=== PATIENT | female | born 1960 | race Caucasian/White ===

== ENCOUNTER 2019-10-06 09:02 | Outpatient (CLI) | payer OTHER, SELFPAY ==
[2019-10-06 09:36] LABS: Alanine Aminotransferase 13 U/L (4-35); Albumin Level 4.2 g/dL (3.5-5.1); Alkaline Phosphatase 122 U/L (38-126); Aspartate Amino Transferase 23 U/L (14-36); Bilirubin,Total 0.5 mg/dL (0.2-1.3); Blood Urea Nitrogen 18 mg/dL (7-17); Calcium 9.5 mg/dL (8.4-10.2); Carbon Dioxide 29 mmol/L (22-30); Chloride 100 mmol/L (98-107); Cholesterol 313 mg/dL (0-200); Estimated Glomerular Filt Rate > 60; Glucose 307 mg/dL (65-105); HDL Direct 54 mg/dL; Potassium 4.8 mmol/L (3.4-5.0); Sodium 136 mmol/L (137-145); Triglycerides 418 mg/dL (<150)
[2019-10-06 09:47] LABS: LDL Cholesterol Direct 198 mg/dL
[2019-10-06 10:48] LABS: Hemoglobin A1C 11.9 % (<5.7)
== END 2019-10-06 09:03 | disposition home or self-care (01) ==
LOC: ANHLAB 09:04
PROVIDERS: PCP Internal Medicine; Visit Provider Nurse Practitioner
DX: E78.5 Hyperlipidemia, unspecified (principal); E11.9 Type 2 diabetes mellitus without complications
CPT/HCPCS: 36415; 80053; 80061; 83036

== ENCOUNTER 2019-10-09 21:12 | Emergency (ER) | payer OTHER, SELFPAY ==
--- NOTE | ~2019-10-09 | XR_ITS ---
EXAMINATION: XR shoulder RT min 2V DATE: 10/09/2019 21:28 INDICATION: Right shoulder injury and pain. TECHNIQUE: 4 views of right shoulder were obtained. COMPARISON: None. FINDINGS: Bone alignment is normal. No fracture. There is moderate osteoarthritis of glenohumeral ambrosio nt. There are loose bodies in the glenohumeral joint. There is severe acromioclavicular joint osteoar thritis. There is mild calcific tendinitis of the rotator cuff. IMPRESSION: 1. Polyarticular osteoarthritis. 2. Loose bodies in right glenohumeral joint. 3. Mild calcific tendinitis of right rotator cuff. Reviewed, dictated and finalized at location A.
[2019-10-09 21:14] VITALS: BP 133/91; PULSE 83; RESP 20; TEMP 36.5; O2SAT 99
--- NOTE | 2019-10-09 21:15 | PC.NURSE ---
pt to xray
--- NOTE | 2019-10-09 22:41 | ED.FALL ---
HPI - Fall General Chief Complaint: Fall Stated Complaint: Fall, Shoulder pain Time Seen by Provider: 10/09/19 22:34 Source: patient and family History of Present Illness HPI Narrative: Patient tripped and fell while walking. Denies any head injury or neck injury. Complaining of right shoulder pain. Some scrapes on the right lower extremity. Patient is able to stand up and walk without any limitation. Patient does not take blood thinners. Related Data Home Medications Medication Instructions Recorded Confirmed chlorpheniramine maleate 4 mg 4 mg PO Q6H PRN 07/07/19 tablet cyclobenzaprine 10 mg tablet 10 mg PO TID 10/06/19 nitrofurantoin macrocrystal 100 mg 100 mg PO Q12H 10/06/19 capsule omeprazole 20 mg capsule,delayed 40 mg PO BID cap 10/06/19 release Allergies Allergy/AdvReac Type Severity Reaction Status Date / Time Cephalosporins Allergy Mild Unknown Verified 10/09/19 21:18 cisapride Allergy Mild Unknown Verified 10/09/19 21:18 cephalexin Allergy Unknown Unknown Verified 10/09/19 21:18 Sulfa (Sulfonamide Allergy Unknown Unknown Verified 10/09/19 21:18 Antibiotics) Review of Systems Review of Systems: Narrative: CONSTITUTIONAL: Denies fever, chills, or sweats. EYES: Denies visual changes, redness, or discharge. ENT: Denies rhinorrhea, congestion, sore throat, or otalgia. CARDIOVASCULAR: Denies chest pain, palpitations, or edema. RESPIRATORY: Denies cough or dyspnea. GASTROINTESTINAL: Denies abdominal pain, nausea, vomiting, or diarrhea. GENITOURINARY: Denies dysuria or hematuria. SKIN: Denies rash or itching. MUSCULOSKELETAL: Denies back pain, joint pain, or myalgia. NEUROLOGIC: Denies headache, numbness, or weakness. PSYCHIATRIC: Denies anxiety or depression. [facility] Past Medical History Medical History GERD (gastroesophageal reflux disease) Hiatal hernia Hypertension Irritable bowel disease Surgical History Surgical History History of appendectomy History of section History of tonsillectomy Family History Family History Father Diabetes mellitus Sibling Patient's brother is in good health Mother Carcinoma of colon Social History Social History Smoking status: Never smoker Alcohol intake: never Gender identity (if verbalized by the patient): Female Exam Narrative: Exam Narrative: General appearance: Well-developed, well-nourished Skin: Normal color Head: Normocephalic, nontraumatic Eyes: Clear conjunctiva ENT: Oropharynx normal, ears normal, nose normal Neck: Supple, nontender Chest and respiratory: Airway patent, no respiratory distress, no accessory muscle use Heart: Regular rate/rhythm Abdomen: Soft, nontender, no organomegaly, quiet bowel sounds Vascular: Normal peripheral pulses, normal capillary refill. 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
[2019-10-09 23:03] VITALS: BP 143/82; PULSE 78; RESP 18; O2SAT 99
== END 2019-10-09 23:04 | disposition home or self-care (01) ==
PROVIDERS: Emergency Provider Emergency Medicine; PCP Internal Medicine
DX: S40.011A Contusion of right shoulder, initial encounter (principal); K21.9 Gastro-esophageal reflux disease without esophagitis; I10 Essential (primary) hypertension; K58.9 Irritable bowel syndrome, unspecified; W01.0XXA Fall on same level from slipping, tripping and stumbling without subsequent striking against object, initial encounter
CPT/HCPCS: 73030; 99283

== ENCOUNTER 2020-06-18 11:49 | Emergency (ER) | payer OTHER, SELFPAY ==
[2020-06-18] VITALS (7 sets, daily range): BP systolic 116–131; BP diastolic 66–85; PULSE 81–91; RESP 18; TEMP 36.2; O2SAT 96–98
--- NOTE | ~2020-06-18 | CT_ITS ---
EXAMINATION: CT abdomen pelvis w con INDICATION: Right flank pain TECHNIQUE: Computed tomographic images of the abdomen and pelvis were obtained after the administrati on of 100 cc of Omnipaque 350 intravenous contrast. The dose-length product (DLP) was 763.78 mGy-cm. Automated exposure control and iterative reconstruction technique were employed. COMPARISON: None available FINDINGS: Minimal dependent atelectasis is present in the lung bases. The heart size is normal. There is a moderate-sized sliding hiatal hernia. Punctate calcifications in an otherwise normal spleen lik junito represent healed granulomatous disease. The liver, pancreas, gallbladder, and adrenal glands are normal. There is a 5.1 cm cyst of the left kidney. The right kidney is unremarkable. No stones are id entified in the kidneys, ureters, or bladder. There is no hydronephrosis or hydroureter. There is albertina cified atherosclerosis of the aorta and many of the other arteries. No pathologically enlarged abdomi nal or pelvic lymph nodes are identified. There is no free intraperitoneal gas or evidence of bowel o bstruction. There is asymmetric sclerosis of the right sacroiliac joint compared to the left which ca n sometimes be seen in the setting of Hermila's syndrome or psoriatic arthritis. There is mild lumbar spondylosis. IMPRESSION: 1. No CT correlate for the patient's symptoms. Reviewed, dictated and finalized at location A.
[2020-06-18 12:38] LABS: Basophils Percent Auto 0.5 % (0.2-1.2); Eosinophils Absolute Auto 0.2 K/mm3 (0-0.3); Eosinophils Percent Auto 2.4 % (0-4.4); Hematocrit 46.2 % (37.0-47.0); Hemoglobin 15.2 g/dL (12.0-15.0); Immature Granulocyte Absolute 0.02 K/mm3 (0.00-0.031); Immature Granulocyte Percent A 0.3 % (0-0.5); Lymphocytes Absolute Auto 2.87 K/mm3 (0.9-3.2); Mean Corpuscular HGB Conc 32.9 g/dl (32-36); Mean Corpuscular Hemoglobin 29.7 pg (26-34); Mean Corpuscular Volume 90.2 fl (80-100); Mean Platelet Volume 10.7 fl (7.4-10.4); Monocytes Absolute Auto 0.5 K/mm3 (0.1-0.6); Monocytes Percent Auto 6.5 % (2.6-8.5); Neutrophils Percent Auto 52.3 % (45.5-73.1); Platelet Count Result 236 k/mm3 (150-375); Red Blood Count 5.12 M/mm3 (4.2-5.4); Red Cell Distribution Width 12.5 % (11.5-14.5); White Blood Count 7.6 K/mm3 (4.5-10.0)
[2020-06-18 12:49] LABS: Anion Gap 7 mmol/L (8-16); Blood Urea Nitrogen 14 mg/dL (7-17); Calcium 9.3 mg/dL (8.4-10.2); Carbon Dioxide 28 mmol/L (22-30); Chloride 101 mmol/L (98-107); Estimated CRCL calculation 83 ml/min; Estimated Glomerular Filt Rate > 60; Glucose 329 mg/dL (65-105); Potassium 4.6 mmol/L (3.4-5.0); Sodium 136 mmol/L (137-145)
[2020-06-18] MEDS: ONDANSETRON INJ 4 MG/2 ML VIAL IV PUSH (12:50)
[2020-06-18] MEDS: SODIUM CHLORIDE 0.9% IV 1,000 ML 999 ML IV CONT (12:56)
[2020-06-18 13:03] LABS: Add Urine Microscopic? YES; Appearance Urine Cloudy (Clear); Bacteria Urine Trace /hpf; Bilirubin Urine Negative (Negative); Blood Urine Negative (Negative); Color Urine Yellow (Yellow); Glucose Urine UA 3+ mg/dL (Negative); Ketones Urine Negative (Negative); Leukocyte Esterase Ur 2+ LEU/UL (Negative); Mucus Urine Rare /lpf; Nitrate Urine Negative (Negative); Protein Urine 1+ mg/dL (Negative); Specific Grav Ur 1.028 (1.001-1.035); Squamous Epithelial Cell Urine Few /hpf (Few); Urobilinogen Urine Negative mg/dL (<2.0); WBC Urine 51-75 /hpf
--- NOTE | 2020-06-18 13:37 | ED.ABDPAIN ---
HPI - Abdominal Pain General Chief Complaint: Abdominal Pain Stated Complaint: right flank pain Time Seen by Provider: 06/18/20 12:31 Source: patient, family and RN notes reviewed Mode of arrival: ambulatory Limitations: no limitations History of Present Illness HPI narrative: Patient 60 years old white female presents with right abdominal sharp pain worse with movement, better at rest started 7 to 10 days ago. Patient denies any fever, chills, nausea, vomiting, radiation of pain, urinary symptoms, chest pain or back pain. 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 History of section and appendectomy. Currently patient is asymptomatic. Related Data Home Medications Medication Instructions Recorded Confirmed chlorpheniramine maleate 4 mg 4 mg PO Q6H PRN 07/07/19 03/21/20 tablet omeprazole 20 mg capsule,delayed 40 mg PO BID cap 10/06/19 03/21/20 release lidocaine 4 % topical patch 1 patch TOPICAL DAILY PRN 03/21/20 03/21/20 Allergies Allergy/AdvReac Type Severity Reaction Status Date / Time Cephalosporins Allergy Mild rash Verified 06/18/20 11:57 cisapride Allergy Mild rash Verified 06/18/20 11:57 cephalexin Allergy Unknown rash Verified 06/18/20 11:57 Sulfa (Sulfonamide Allergy Unknown Rash Verified 06/18/20 11:57 Antibiotics) Review of Systems Review of Systems: Narrative: CONSTITUTIONAL: Denies fever, chills, or sweats. EYES: Denies visual changes, redness, or discharge. ENT: Denies rhinorrhea, congestion, sore throat, or otalgia. CARDIOVASCULAR: Denies chest pain, palpitations, or edema. RESPIRATORY: Denies cough or dyspnea. GASTROINTESTINAL: Denies abdominal pain, nausea, vomiting, or diarrhea. GENITOURINARY: Denies dysuria or hematuria. SKIN: Denies rash or itching. MUSCULOSKELETAL: Denies back pain, joint pain, or myalgia. NEUROLOGIC: Denies headache, numbness, or weakness. PSYCHIATRIC: Denies anxiety or depression. [facility] Past Medical History Medical History Cyst of Skin GERD (gastroesophageal reflux disease) Hiatal hernia Hypertension Irritable bowel disease MRSA (methicillin resistant Staphylococcus aureus) Surgical History Surgical History History of appendectomy History of section History of tonsillectomy Family History Family History Father Diabetes mellitus Sibling Patient's brother is in good health Mother Carcinoma of colon Social History Social History Smoking status: Never smoker Alcohol intake: never Gender identity (if verbalized by the patient): Female Exam Narrative: Exam Narrative: General appearance: Well-developed, well-nourished Skin: Normal color Head: Normocephalic, nontraumatic Eyes: Clear conjunctiva ENT: Oropharynx normal, ears normal, nose normal Neck: Supple, nontender Chest and respiratory: Airway patent, no respiratory distress, no accessory muscle use Heart: Regular rate/rhythm Abdomen: Soft, nontender, no organomegaly, quiet bowel sounds Vascular: Normal peripheral pulses, normal capillary refill. 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
== END 2020-06-18 15:00 | disposition home or self-care (01) ==
PROVIDERS: Emergency Medicine; Emergency Provider Emergency Medicine; PCP Internal Medicine
DX: N39.0 Urinary tract infection, site not specified (principal); R73.9 Hyperglycemia, unspecified; R10.11 Right upper quadrant pain; K21.9 Gastro-esophageal reflux disease without esophagitis; I10 Essential (primary) hypertension; K58.9 Irritable bowel syndrome, unspecified; Z86.14 Personal history of Methicillin resistant Staphylococcus aureus infection
CPT/HCPCS: 36415; 74177; 80048; 81001; 85025; 87086; 96361; 96374; 99284; J2405; J7030; Q9967

== ENCOUNTER 2020-06-29 11:26 | Outpatient (CLI) | payer OTHER, SELFPAY ==
--- NOTE | ~2020-06-29 | XR_ITS ---
EXAMINATION: XR thoracic spine 2V, XR lumbar spine 2-3V DATE: 06/29/2020 12:01 INDICATION: Lumbago with sciatica. TECHNIQUE: 1. AP, lateral and lateral swimmers views of the thoracic spine were obtained. 2. AP and lateral views of the lumbar spine and cone-down lateral view of the lumbosacral junction we re obtained. COMPARISON: CT abdomen and pelvis dated 06/18/2020 FINDINGS: Thoracic spine: 6 degrees lower thoracic levocurvature. Mild upper thoracic kyphosis. Vertebral body heights are norm al. Multilevel mild disc height loss throughout the mid to lower thoracic spine. There are several pr ominent endplate osteophytes in the lower thoracic spine and in the lower cervical spine consistent w ith diffuse idiopathic skeletal hyperostosis (DISH). Visualized portions of the lungs are clear with no pleural effusion or pneumothorax. Cardiomediastinal silhouette is normal. A few splenic calcificat ions along with calcified left hilar lymph nodes consistent with old granulomatous disease. Small hia wliy hernia. Lumbar spine: L5 is partially sacralized on the right. 2-3 mm retrolisthesis L2 on L3 and L3 on L4. 3-4 mm anteroli sthesis L4 on L5. Severe disc height loss at L5-S1. Vertebral body heights are normal. Moderate disc height loss at L4-L5. Severe bilateral facet osteoarthritis at L4-L5 and L5-S1. Mild to moderate face t osteoarthritis in the more cephalad lumbar spine. Moderate right sided and mild left-sided sacroili ac osteoarthritis. Mild bilateral hip osteoarthritis. A few phleboliths in the pelvis. IMPRESSION: Severe lower lumbar spondylosis with mild spondylosis in the more cephalad lumbar and thoracic spine. Reviewed, dictated and finalized at location B. IMPRESSION: Severe lower lumbar spondylosis with mild spondylosis in the more cephalad lumb ar and thoracic spine.
== END 2020-06-29 11:27 | disposition home or self-care (01) ==
LOC: ANHIMG 11:36
PROVIDERS: PCP Internal Medicine; Visit Provider Nurse Practitioner
DX: G89.29 Other chronic pain (principal); M54.40 Lumbago with sciatica, unspecified side; M47.816 Spondylosis without myelopathy or radiculopathy, lumbar region; M47.814 Spondylosis without myelopathy or radiculopathy, thoracic region
CPT/HCPCS: 72070; 72100

== ENCOUNTER 2020-07-15 08:13 | Outpatient (CLI) | payer OTHER, SELFPAY ==
--- NOTE | ~2020-07-15 | MR_ITS ---
EXAMINATION: MR thoracic spine wo con DATE: 07/15/2020 09:29 INDICATION: Thoracic back pain. TECHNIQUE: Magnetic resonance imaging (MRI) of the thoracic spine was performed without intravenous c ontrast. Sagittal localizer T1-weighted FSE of the cervical spine was obtained. Thoracic spine sequen faheem included sagittal T2-weighted FSE, sagittal T1-weighted FSE, sagittal T2-weighted FS FSE, and axi al T2-weighted FSE. COMPARISON: Thoracic spine radiographs 06/29/2020 FINDINGS: There is 4 degrees dextrocurvature of thoracic spine. Vertebral body heights are normal. Th ere is mildly decreased disc height at T5-T6, T6-T7, and T7-T8. At T11-T12, there is a central protru karine. No significant central canal stenosis. There is multilevel facet joint osteoarthritis, severe a t many levels. On the right, there is mild neural foraminal stenosis from T1-T2 through T9-T10 and at T11-T12. On the left, there is mild neural foraminal stenosis from T1-T2 through T4-T5, moderate beck ral foraminal stenosis from T6-T7 through T8-T9, and mild neural foraminal stenosis at T10-T11 and T1 2-L1. The spinal cord signal intensity is normal. The conus medullaris is at L1. There is a moderate- sized sliding hiatal hernia. IMPRESSION: 1. Moderate thoracic spondylosis. 2. Moderate-sized sliding hiatal hernia. Reviewed, dictated and finalized at location A.
== END 2020-07-15 08:14 ==
PROVIDERS: PCP Internal Medicine; Visit Provider Nurse Practitioner Family
DX: M54.6 Pain in thoracic spine (principal); M54.5 Low back pain; M47.814 Spondylosis without myelopathy or radiculopathy, thoracic region; K44.9 Diaphragmatic hernia without obstruction or gangrene
CPT/HCPCS: 72146

== ENCOUNTER 2020-07-25 12:05 | Outpatient (CLI) | payer OTHER, SELFPAY ==
--- NOTE | ~2020-07-25 | MR_ITS ---
EXAMINATION: MR lumbar spine wo con EXAM DATE: 07/25/2020 12:58 INDICATION: Low back pain, occasional leg pain. TECHNIQUE: Multi-sequential, multiplanar MR images of the lumbar spine were obtained without contrast . Sagittal T1, T2, T2 fat saturation images. Axial T2 weighted images. Correlation is made to lumba r x-ray 06/29/2020. FINDINGS: Partially sacralized L5 segment. There is 3 mm retrolisthesis L2 on L3 and L3 on L4. There is 2 mm anterolisthesis L4 on L5. Mild disc disease T10 through L5. There are no suspicious marrow si gnal abnormalities. The conus medullaris terminates at the T12-L1 level and has normal signal intensi ty and morphology. Left renal cyst. Level by level evaluation: T12-L1: There is a minimal diffuse disc bulge. Facet arthropathy: Mild to moderate left, mild right. Neural foraminal stenosis: Mild left. Central canal stenosis: No stenosis. L1-L2: There is a minimal diffuse disc bulge. Facet arthropathy: Mild to moderate left, mild right. Neural foraminal stenosis: No stenosis. Central canal stenosis: No stenosis. L2-L3: There is a mild diffuse disc bulge. Facet arthropathy: Moderate. Neural foraminal stenosis: Mild bilateral. Central canal stenosis: Mild. L3-L4: There is a mild to moderate diffuse disc bulge. Facet arthropathy: Moderate to severe bilateral. Neural foraminal stenosis: Moderate left, mild to moderate right. Central canal stenosis: Moderate. L4-L5: There is a mild diffuse disc bulge. Facet arthropathy: Severe, but partially fused. Neural foraminal stenosis: Mild bilateral. Central canal stenosis: Moderate. L5-S1: There is a minimal diffuse disc bulge. Facet arthropathy: Moderate left to severe left, mild right. Neural foraminal stenosis: Moderate left. Central canal stenosis: No stenosis. IMPRESSION: 1. Lumbar spondylosis as above, with moderate central canal stenosis L3-4 and L4-5. 2. Advanced mid lumbar facet arthropathy. Reviewed, dictated and finalized at location B.
== END 2020-07-25 12:06 ==
PROVIDERS: PCP Internal Medicine; Visit Provider Nurse Practitioner Family
DX: M47.815 Spondylosis without myelopathy or radiculopathy, thoracolumbar region (principal); M48.05 Spinal stenosis, thoracolumbar region; M47.817 Spondylosis without myelopathy or radiculopathy, lumbosacral region; M48.07 Spinal stenosis, lumbosacral region
CPT/HCPCS: 72148

== ENCOUNTER 2020-09-23 10:08 | Outpatient (CLI) | payer OTHER, SELFPAY ==
[2020-09-23 10:56] LABS: Hemoglobin A1C 12.7 % (<5.7)
[2020-09-23 10:59] LABS: Alanine Aminotransferase 18 U/L (4-35); Alkaline Phosphatase 80 U/L (38-126); Anion Gap 8 mmol/L (8-16); Aspartate Amino Transferase 26 U/L (14-36); Bilirubin,Total 0.5 mg/dL (0.2-1.3); Blood Urea Nitrogen 18 mg/dL (7-17); Calcium 9.5 mg/dL (8.4-10.2); Carbon Dioxide 28 mmol/L (22-30); Chloride 103 mmol/L (98-107); Cholesterol 150 mg/dL (0-200); Estimated Glomerular Filt Rate > 60; Glucose 249 mg/dL (65-105); HDL Direct 59 mg/dL; Potassium 4.4 mmol/L (3.4-5.0); Sodium 139 mmol/L (137-145); Triglycerides 225 mg/dL (<150)
[2020-09-23 11:10] LABS: LDL Cholesterol Direct 52 mg/dL
== END 2020-09-23 10:09 | disposition home or self-care (01) ==
PROVIDERS: PCP Internal Medicine; Visit Provider Internal Medicine
DX: E78.5 Hyperlipidemia, unspecified (principal); E11.9 Type 2 diabetes mellitus without complications; I10 Essential (primary) hypertension
CPT/HCPCS: 36415; 80053; 80061; 83036

== ENCOUNTER 2021-01-19 08:31 | Outpatient (CLI) | payer SELFPAY ==
[2021-01-19 10:58] LABS: Hemoglobin A1C 7.9 % (<5.7)
== END 2021-01-19 08:32 | disposition home or self-care (01) ==
LOC: ANHLAB 08:32
PROVIDERS: PCP Internal Medicine; Visit Provider Internal Medicine
DX: E11.9 Type 2 diabetes mellitus without complications (principal)
CPT/HCPCS: 36415; 83036

== ENCOUNTER 2022-06-14 10:05 | Outpatient (CLI) | payer OTHER, SELFPAY ==
[2022-06-14 11:28] LABS: Creatinine Urine 24.5 mg/dL
[2022-06-14 11:33] LABS: MALB Creatinine Ratio 26.1 mg/g (0-30); Microalbumin Urine Random 6.4 mg/L (0-16.7)
[2022-06-14 11:39] LABS: Alanine Aminotransferase 21 U/L (6-35); Albumin Level 4.3 g/dL (3.5-5.1); Alkaline Phosphatase 104 U/L (38-126); Anion Gap 8 mmol/L (8-16); Aspartate Amino Transferase 28 U/L (14-36); Bilirubin,Total 0.7 mg/dL (0.2-1.3); Blood Urea Nitrogen 18 mg/dL (7-17); Calcium 9.2 mg/dL (8.4-10.2); Carbon Dioxide 27 mmol/L (22-30); Chloride 102 mmol/L (98-107); Cholesterol 303 mg/dL (0-200); Estimated Glomerular Filt Rate > 60; Glucose 284 mg/dL (65-110); HDL Direct 45 mg/dL; Potassium 4.3 mmol/L (3.4-5.0); Sodium 137 mmol/L (137-145); Triglycerides 370 mg/dL (<150)
[2022-06-14 11:49] LABS: LDL Cholesterol Direct 171 mg/dL
== END 2022-06-14 10:06 | disposition home or self-care (01) ==
LOC: ANHLAB 10:06
PROVIDERS: PCP Internal Medicine; Visit Provider Nurse Practitioner Family
DX: E11.9 Type 2 diabetes mellitus without complications (principal); E78.5 Hyperlipidemia, unspecified; I10 Essential (primary) hypertension
CPT/HCPCS: 36415; 80053; 80061; 82043; 83036

== ENCOUNTER 2022-07-30 10:30 | Outpatient (CLI) | payer OTHER, SELFPAY ==
[2022-07-30 11:05] LABS: Appearance Urine Clear (Clear); Bacteria Urine None Seen /hpf; Bilirubin Urine Negative (Negative); Blood Urine Negative (Negative); Color Urine Yellow (Yellow); Glucose Urine UA Negative (Negative); Ketones Urine Negative (Negative); Leukocyte Esterase Ur 2+ LEU/UL (NEGATIVE); Nitrate Urine Negative (Negative); Protein Urine Negative (Negative); RBC Urine 0-2 /hpf (0-2); Specific Grav Ur 1.028 (1.001-1.035); Squamous Epithelial Cell Urine Occasional /hpf (Few); Urobilinogen Urine 0.2 mg/dL (<2.0); WBC Urine 51-100 /hpf (0-3); pH Urine 5.5 (5.0-9.0)
[2022-07-30 11:09] LABS: Add Urine Microscopic? YES
== END 2022-07-30 10:31 | disposition home or self-care (01) ==
LOC: ANHLAB 10:32
PROVIDERS: PCP Internal Medicine; Visit Provider Nurse Practitioner Family
DX: N39.0 Urinary tract infection, site not specified (principal)
CPT/HCPCS: 81001; 87086; 87088

== ENCOUNTER 2022-09-17 10:41 | Outpatient (CLI) | payer OTHER, SELFPAY ==
[2022-09-17 11:13] LABS: Basophils Absolute Auto 0.1 K/mm3 (0.0-0.1); Basophils Percent Auto 0.6 % (0.2-1.2); Eosinophils Absolute Auto 0.1 K/mm3 (0-0.3); Eosinophils Percent Auto 1.1 % (0-4.4); Hemoglobin 14.4 g/dL (12.0-15.0); Immature Granulocyte Absolute 0.02 K/mm3 (0.00-0.031); Immature Granulocyte Percent A 0.2 % (0-0.5); Lymphocytes Absolute Auto 3.44 K/mm3 (0.9-3.2); Lymphocytes Percent Auto 34.6 % (18.3-44.2); Mean Corpuscular HGB Conc 32.7 g/dl (32-36); Mean Corpuscular Hemoglobin 29.4 pg (26-34); Mean Platelet Volume 11.1 fl (7.4-10.4); Monocytes Absolute Auto 0.6 K/mm3 (0.1-0.6); Monocytes Percent Auto 5.6 % (2.6-8.5); Neutrophils Absolute Auto 5.8 K/mm3 (1.3-6.7); Neutrophils Percent Auto 57.9 % (45.5-73.1); Platelet Count Result 285 k/mm3 (150-375); Red Blood Count 4.89 M/mm3 (4.2-5.4); Red Cell Distribution Width 12.6 % (11.5-14.5); White Blood Count 9.9 K/mm3 (4.5-10.0)
[2022-09-17 11:20] LABS: Hemoglobin A1C 8.8 % (<5.7)
[2022-09-17 11:26] LABS: Alanine Aminotransferase 19 U/L (6-35); Albumin Level 4.4 g/dL (3.5-5.1); Alkaline Phosphatase 84 U/L (38-126); Anion Gap 4 mmol/L (8-16); Aspartate Amino Transferase 27 U/L (14-36); Bilirubin,Total 0.6 mg/dL (0.2-1.3); Blood Urea Nitrogen 19 mg/dL (7-17); Calcium 9.6 mg/dL (8.4-10.2); Carbon Dioxide 31 mmol/L (22-30); Chloride 102 mmol/L (98-107); Estimated Glomerular Filt Rate 56; Glucose 138 mg/dL (65-110); Potassium 4.4 mmol/L (3.4-5.0); Sodium 137 mmol/L (137-145)
== END 2022-09-17 10:42 | disposition home or self-care (01) ==
LOC: ANHLAB 10:43
PROVIDERS: PCP Family Medicine; Visit Provider Nurse Practitioner Family
DX: E11.9 Type 2 diabetes mellitus without complications (principal); I10 Essential (primary) hypertension
CPT/HCPCS: 36415; 80053; 83036; 85025

== ENCOUNTER 2024-05-22 07:35 | Outpatient (CLI) | payer MEDICARE, SELFPAY | END 2024-05-22 07:36 | disposition home or self-care (01) | LOC: MICIMG 07:35 | PROVIDERS: PCP Pain Medicine Pain Medicine; Visit Provider Nurse Practitioner Family | DX: M47.812 Spondylosis without myelopathy or radiculopathy, cervical region (principal) | CPT/HCPCS: 72141 ==

== ENCOUNTER 2024-10-22 13:45 | Outpatient (CLI) | payer MEDICARE, SELFPAY ==
--- NOTE | ~2024-10-22 | MM_ITS ---
EXAMINATION: MM screening raymond BI w silvia HISTORY: Screening TECHNIQUE: Craniocaudal and mediolateral oblique 3-D tomosynthesis images were obtained and synthetic 2-D images were generated. CAD analysis was submitted and interpreted. COMPARISON: No prior mammogram is available for comparison at this institution. BREAST PARENCHYMAL COMPOSITION: Not Dense: The breasts are almost entirely fatty. FINDINGS: There is no evidence of suspicious mass, calcification, or architectural distortion to sugg est malignancy in either breast. There has been no suspicious interval change. IMPRESSION: 1. No mammographic evidence of malignancy. 2. Recommend routine screening mammography in one year. BI-RADS Category 1: Negative Reviewed, dictated and finalized at location B.
== END 2024-10-22 13:46 | disposition home or self-care (01) ==
PROVIDERS: PCP Internal Medicine; Visit Provider Internal Medicine
DX: Z12.31 Encounter for screening mammogram for malignant neoplasm of breast (principal)
CPT/HCPCS: 77063; 77067

== ENCOUNTER 2024-12-31 11:29 | Emergency (ER) | payer MEDICARE, SELFPAY ==
[2024-12-31 12:04] VITALS: BP 148/76; PULSE 69; RESP 18; TEMP 36.8; O2SAT 100
--- NOTE | 2024-12-31 12:36 | ED_ITS ---
HPI - General Adult General Chief complaint: Eye Problems Stated complaint: L eye redness, CANELA Time Seen by Provider: 12/31/24 11:49 History of Present Illness HPI narrative: This is a 64-year-old female presenting for left eye redness. Yesterday the patient noticed that the inside of her left eye left was blood red. It is not painful. She does not have any visual changes. She does not remember any trauma, straining or constipation. She is not on any blood thinners but takes a baby aspirin. She is experiencing her typical frontal headache which she has about once a week for many years. Her headache is around the frontal and maxillary sinuses. She has taken Tylenol and Claritin at home. She has taken Tylenol with some relief. She went to see her primary care physician about it after being pressured by her family. Primary care physician was not available and she was sent to the ER. Patient does not have any fevers, ear pain, jaw claudication, chest pain difficulty breathing abdominal pain or urinary symptoms. Related Data Home Medications ?Medication ?Instructions ?Recorded ?Confirmed ?Last Taken ?Type chlorpheniramine maleate 4 mg 4 mg PO Q6H PRN Allergy Symptoms 07/07/19 09/23/22 Unknown History tablet (Allergy Relief (chlorpheniramine)) diphenhydramine 25 1 tablet PO QHS PRN 06/29/20 09/23/22 Unknown History mg-acetaminophen 500 mg tablet (Tylenol PM Extra Strength) omeprazole 20 mg capsule,delayed 20 mg PO BID 06/17/22 09/23/22 Unknown History release Allergies Allergy/AdvReac Type Severity Reaction Status Date / Time Cephalosporins Allergy Mild rash Verified 12/31/24 12:09 cisapride Allergy Mild rash Verified 12/31/24 12:09 cephalexin Allergy Unknown rash Verified 12/31/24 12:09 Sulfa (Sulfonamide Allergy Unknown Rash Verified 12/31/24 12:09 Antibiotics) [facility] Past Medical History Medical History Cyst of Skin Essential (primary) hypertension GERD (gastroesophageal reflux disease) Hiatal hernia Hyperlipidemia LDL goal <100 Hypertension Irritable bowel disease MRSA (methicillin resistant Staphylococcus aureus) Type 2 diabetes mellitus without complication, without long-term current use of insulin Surgical History Surgical History History of appendectomy History of section History of tonsillectomy Family History Family History Father Diabetes mellitus Sibling Patient's brother is in good health Mother Carcinoma of colon Social History Social History (Updated 09/23/22 @ 10:22 by Hilary Askew MA) Smoking status: Never smoker Alcohol intake: never Substance use: never Substance use type: does not use Lack of Transportation: No Lack of Food: Sometimes True Current Housing: I Have Housing Concerned About Future Housing: No Difficulty Paying Gas/Electric Bills: YES Difficulty Paying for Meds: YES Currently Unemployed: No Education: High School Diploma/GED Difficulty w/ Childcare or Family Care: No Gender identity (if verbalized by the patient): Female Exam Narrative: APPEARANCE: No apparent distress. Head: atraumatic. EYES: Extraocular are movements intact, IOP 20 bilaterally, no fluorescein uptake on exam, left eye has a subconjunctival hemorrhage on the nasal side. Visual acuity at baseline and is actually better in the affected eye. No tenderness over the left temporal artery NOSE: Atraumatic NECK: Trachea midline RESPIRATORY: No increased rate of breathing clear to auscultation CARDIOVASCULAR: RRR, ABDOMINAL: Non-distended MUSCULOSKELETAl: No obvious deformities NEURO: Alert. Cranial nerves 2-12 grossly intact. Sensation light touch, motor function cerebellar function intact for 4 extremities. Gait exam was normal. SKIN:: Warm, dry. Normal color PSYCHIATRIC: Normal affect Course Vital Signs Vital signs: Vital Signs Temperature 98.3 F 12/31/24 12:04 Pulse Rate 69 12/31/24 12:04 Respiratory Rate 18 12/31/24 12:04 Blood Pressure 148/76 H 12/31/24 12:04 Pulse Oximetry 100 12/31/24 12:04 Oxygen Delivery Room Air 12/31/24 12:04 Temperature 98.3 F 12/31/24 12:04 Pulse Rate 69 12/31/24 12:04 Respiratory Rate 18 12/31/24 12:04 Blood Pressure 148/76 H 12/31/24 12:04 Pulse Oximetry 100 12/31/24 12:04 Oxygen Delivery Room Air 12/31/24 12:04 Medical Decision Making MDM Narrative Medical decision making narrative: -Course: 64-year-old female presenting with a left-sided sub-conjunctiva hemorrhage. She is also experiencing a headache but this is very clearly her weekly headache is likely related to sinus congestion. In she does not have any neurologic deficits. No visual acuity changes, changes in intraoperative hypotension or findings on fluorescein exam. She does not have any jaw claudication or tenderness over the left temporal artery. Patient feels well overall and is comfortable going home. Patient will be discharged with Ophthalmology follow-up and return precautions. -DDX includes but is not limited to: Sub-conjunctiva hemorrhage, Acute angle closure glaucoma, temporal arteritis, intracranial hemorrhage, complex migraine Vital Signs Vital Signs: Vital Signs Temperature 98.3 F 12/31/24 12:04 Pulse Rate 69 12/31/24 12:04 Respiratory Rate 18 12/31/24 12:04 Blood Pressure 148/76 H 12/31/24 12:04 Pulse Oximetry 100 12/31/24 12:04 Oxygen Delivery Room Air 12/31/24 12:04 Temperature 98.3 F 12/31/24 12:04 Pulse Rate 69 12/31/24 12:04 Respiratory Rate 18 12/31/24 12:04 Blood Pressure 148/76 H 12/31/24 12:04 Pulse Oximetry 100 12/31/24 12:04 Oxygen Delivery Room Air 12/31/24 12:04 Discharge Plan Discharge Clinical Impression: Sinus headache, CASEY (subconjunctival hemorrhage) Patient Disposition: Home Condition: Stable Instructions: Antibiotic Form, Acute Headache (DC) Additional Instructions: You were seen in the emergency department for a subconjunctival hemorrhage. Please follow-up with an off premise service representative in 48 hours to ensure resolution. Please take Tylenol and antihistamines for your headache. If you develop any visual changes, eye pain or new symptoms please return to the ED for re- evaluation. Please follow-up with your primary care physician 3-5 days. If you do not have an off premise service representative you can call [employer] @ [phone] to arrange f/u. Patient Language: [place]an Prescriptions: No Action chlorpheniramine maleate [Allergy Relief(chlorpheniramn)] 4 mg tablet 4 mg PO Q6H PRN (Reason: Allergy Symptoms) diphenhydramine-acetaminophen [Tylenol PM Extra Strength] 25-500 mg tablet 1 tablet PO QHS PRN omeprazole 20 mg capsule,delayed release(DR/EC) 20 mg PO BID (DME) blood-glucose meter [Blood Glucose Monitoring] Kit See Rx Instructions .Route Qty: 1 0RF Rx Instructions: As directed nystatin 100,000 unit/gram powder 1 applic topical BID Qty: 60 2RF (DME) Comfort EZ Lancets 23 gauge misc See Rx Instructions .Route Qty: 100 1RF Rx Instructions: As directed (DME) Blood Glucose Test Strip See Rx Instructions .Route Qty: 50 2RF Rx Instructions: three times Wegovy 0.5 mg/0.5 mL pen injector 0.5 mg subcut WEEKLY Qty: 2 0RF Rx Instructions: administer weeks 5 through 8 of therapy (DME) NovoFine Plus 32 gauge x 1/6 needle See Rx Instructions .Route Qty: 100 0RF Rx Instructions: As directed insulin glargine [Basaglar KwikPen U-100 Insulin] 100 unit/mL (3 mL) insulin pen 44 unit subcut QAM Qty: 15 3RF lisinopril 20 mg tablet See Rx Instructions .ROUTE .COMPLEX Qty: 90 1RF Dose Instruction: TAKE 1 TABLET BY MOUTH DAILY Rx Instructions: TAKE 1 TABLET BY MOUTH DAILY Follow-up/Referrals: Saman,Edison Willis MD [Primary Care Provider, Unknown]
[2024-12-31 12:58] VITALS: BP 153/61; PULSE 60; RESP 16; TEMP 36.4; O2SAT 97
== END 2024-12-31 13:05 | disposition home or self-care (01) ==
PROVIDERS: Emergency Provider Emergency Medicine; PCP Internal Medicine
DX: R51.9 Headache, unspecified (principal); H11.32 Conjunctival hemorrhage, left eye
CPT/HCPCS: 99283